=== PATIENT | male | born 2000 | race Two or more races ===

== ENCOUNTER 2024-02-23 02:48 | Inpatient (IN) | payer MEDICAID, OTHER ==
[2024-02-23] VITALS (8 sets, daily range): BP systolic 117–130; BP diastolic 62–74; PULSE 94–117; RESP 16–18; TEMP 97.2–99; O2SAT 95–100
[~2024-02-23] VITALS: Ht 165.1 cm; Wt 101.6 kg
[2024-02-23 04:30] LABS: BASOPHILS % (AUTO) 0.9 % (0.0-2.0); EOSINOPHILS % (AUTO) 0.1 % (1.0-6.0); HEMOGLOBIN 17.5 g/dL (13.5-17.5); MONOCYTES # (AUTO) 0.5 K/uL (0.1-1.0)
[2024-02-23 04:38] LABS: ANION GAP 13 mmol/L (8-16); CALCIUM, TOTAL 8.8 mg/dL (8.8-10.5); CARBON DIOXIDE 24 mmol/L (22-29); CHLORIDE 105 mmol/L (98-107); GLOMERULAR FILTR. RATE CALC > 60 mL/min (>60); GLUCOSE,RANDOM 156 mg/dL (70-110); POTASSIUM 3.7 mmol/L (3.5-5.1); SODIUM SERUM 142 mmol/L (136-145); UREA NITROGEN, BLOOD 9 mg/dL (7-18)
[2024-02-23 04:41] LABS: LYMPHOCYTES # (AUTO) 1.9 K/uL (1.0-4.8); LYMPHOCYTES % (AUTO) 25.3 % (22.0-44.0); MEAN CORPUSCULAR HEMOGLOBIN 31.4 pg (26.0-34.0); MEAN CORPUSCULAR HGB CONC 34.3 G/dL (31.0-37.0); MEAN CORPUSCULAR VOLUME 92 fL (80-100); MONOCYTES % (AUTO) 6.1 % (2.0-9.0); NEUTROPHILS % (AUTO) 67.6 % (40.0-70.0); PLATELET COUNT (AUTO) 329 K/uL (150-450); RED BLOOD CELL COUNT(AUTO) 5.58 MIL/uL (4.50-5.90); RED CELL DISTRIBUTION WIDTH 13.7 % (11.5-14.5); WHITE BLOOD COUNT (AUTO) 7.3 K/uL (4.5-11.0)
[2024-02-23 04:44] LABS: COVID AG,FIA SOURCE NASAL SWAB
[2024-02-23 04:56] LABS: ALCOHOL, BLOOD (SERUM) 326 mg/dL (0-10)
[2024-02-23 05:06] LABS: SARS-COV2 (COVID) ANTIGEN,FIA Negative (Negative)
[2024-02-23 06:13] LABS: AMPHET/METH SCREEN,URINE NEGATIVE (NEGATIVE); BARBITURATE SCREEN, URINE NEGATIVE (NEGATIVE); BENZODIAZEPINES SCREEN,URINE NEGATIVE (NEGATIVE); CANNABINOID SCREEN,URINE POSITIVE (NEGATIVE); COCAINE SCREEN,URINE NEGATIVE (NEGATIVE); METHADONE SCREEN, URINE NEGATIVE (NEGATIVE); OPIATE SCREEN,URINE NEGATIVE (NEGATIVE); PHENCYCLIDINE SCREEN,URINE NEGATIVE (NEGATIVE)
[2024-02-23 06:14] LABS: ALCOHOL, URINE DRUG SCREEN POSITIVE (NEGATIVE)
[2024-02-23] MEDS ORDERED: HALOPERIDOL 5 MG TABLET PO PRN (08:15)
[2024-02-23] MEDS ORDERED: ZOLPIDEM TARTRATE 10 MG TABLET PO PRN (08:15)
[2024-02-24] VITALS (10 sets, daily range): BP systolic 124–157; BP diastolic 64–98; PULSE 94–125; RESP 16–18; TEMP 97.3–99.3; O2SAT 96–98
[2024-02-24] MEDS ORDERED: LOPERAMIDE HCL 2 MG CAPSULE PO PRN (09:30)
[2024-02-24] MEDS ORDERED: ONDANSETRON 4 MG TABLET PO PRN (09:30)
[2024-02-24] MEDS ORDERED: MAGNESIUM HYDROXIDE SUSPENSION 30 ML UDCUP PO PRN (09:30)
[2024-02-24] MEDS ORDERED: CloNIDine HCL 0.1 MG TABLET PO PRN (09:30)
[2024-02-24] MEDS ORDERED: BENZOCAINE/MENTHOL LOZENGE PO PRN (09:30)
[2024-02-24] MEDS ORDERED: MAG HYDROX/ALUMINUM HYD/SIMETH ES 30 ML SUSPENSION UDCUP PO PRN (09:30)
[2024-02-24] MEDS ORDERED: ALBUTEROL SULFATE HFA 90 MCG/PUFF 8 GM INHALER IH PRN (09:30)
[2024-02-24] MEDS ORDERED: PETROLATUM,WHITE 28 GM JELLY TP PRN (09:30)
[2024-02-24] MEDS ORDERED: ACETAMINOPHEN 325 MG TABLET PO PRN (09:30)
[2024-02-24] MEDS ORDERED: OMEPRAZOLE 20 MG CAPSULE PO PRN (09:30)
[2024-02-24] MEDS ORDERED: BACITRACIN 28 GM OINTMENT TP PRN (09:30)
[2024-02-24] MEDS ORDERED: DOCUSATE SODIUM 100 MG CAPSULE PO PRN (09:30)
[2024-02-24] MEDS: IBUPROFEN 600 MG TABLET PO PRN (10:10)
[2024-02-24] MEDS: LORazepam 2 MG TABLET PO PRN (11:04)
[2024-02-25 08:09] VITALS: BP 130/97; PULSE 73; RESP 17; TEMP 98; O2SAT 99
[2024-02-25 11:59] VITALS: BP 121/74; PULSE 88; RESP 17; TEMP 98; O2SAT 100
[2024-02-25 20:00] VITALS: BP 148/73; PULSE 100; RESP 18; TEMP 97.3; O2SAT 99
[2024-02-25 20:18] VITALS: BP 153/86; PULSE 117; RESP 20; TEMP 96.3; O2SAT 100
[2024-02-26 08:25] VITALS: BP 145/90; PULSE 84; RESP 18; TEMP 97.9; O2SAT 96
[2024-02-26 10:00] VITALS: BP 126/76; PULSE 85; RESP 18; TEMP 97.6; O2SAT 98
[2024-02-26 21:03] VITALS: BP 140/78; PULSE 76; RESP 17; TEMP 97.5; O2SAT 99
[2024-02-26 23:00] VITALS: BP 140/78; PULSE 76; RESP 18; TEMP 97.5; O2SAT 99
[2024-02-27 08:17] VITALS: BP 123/72; PULSE 89; RESP 17; TEMP 97.3; O2SAT 97
[2024-02-27 09:00] VITALS: BP 123/72; PULSE 89; RESP 17; TEMP 97.3; O2SAT 97
[2024-02-27 20:00] VITALS: BP 133/64; PULSE 85; RESP 18; TEMP 98.2; O2SAT 96
[2024-02-28 08:00] VITALS: BP 132/74; PULSE 92; RESP 17; TEMP 97.7; O2SAT 96
[2024-02-28 08:27] VITALS: BP 132/74; PULSE 92; RESP 17; TEMP 97.7; O2SAT 96
[2024-02-28 20:41] VITALS: BP 128/73; PULSE 89; RESP 18; TEMP 97.9; O2SAT 98
[2024-02-29 08:20] VITALS: BP 127/60; PULSE 81; RESP 16; TEMP 97.9; O2SAT 99
== END 2024-02-29 17:52 | disposition home or self-care (01) | DRG 754 ==
LOC: EMS 02:48 → B2S 10:43
PROVIDERS: ADMIT Psychiatry & Neurology Psychiatry; ATTEND Psychiatry & Neurology Psychiatry
DX: F32.9 Major depressive disorder, single episode, unspecified (principal); R45.851 Suicidal ideations; E66.9 Obesity, unspecified; G47.00 Insomnia, unspecified; Z20.822 Contact with and (suspected) exposure to COVID-19; K59.00 Constipation, unspecified; Z72.0 Tobacco use; F12.90 Cannabis use, unspecified, uncomplicated; F41.9 Anxiety disorder, unspecified; F10.129 Alcohol abuse with intoxication, unspecified; Z68.37 Body mass index [BMI] 37.0-37.9, adult; F10.10 Alcohol abuse, uncomplicated
CPT/HCPCS: 80048; 80307; 85025; G0480

== ENCOUNTER 2024-06-26 03:08 | Inpatient (IN) | payer MEDICAID, OTHER ==
[~2024-06-26] VITALS: Ht 165.1 cm; Wt 97.6 kg
[2024-06-26 03:50] LABS: BASOPHILS % (AUTO) 0.9 % (0.0-2.0); EOSINOPHILS % (AUTO) 0.5 % (1.0-6.0); HEMATOCRIT 47.3 % (41-53); HEMOGLOBIN 16.5 g/dL (13.5-17.5); LYMPHOCYTES # (AUTO) 2.5 K/uL (1.0-4.8); MEAN CORPUSCULAR HEMOGLOBIN 31.2 pg (26.0-34.0); MEAN CORPUSCULAR HGB CONC 34.9 G/dL (31.0-37.0); MEAN CORPUSCULAR VOLUME 90 fL (80-100); MONOCYTES # (AUTO) 0.7 K/uL (0.1-1.0); MONOCYTES % (AUTO) 8.4 % (2.0-9.0); NEUTROPHILS # (AUTO) 4.9 K/uL (1.8-7.7); NEUTROPHILS % (AUTO) 59.2 % (40.0-70.0); PLATELET COUNT (AUTO) 276 K/uL (150-450); RED BLOOD CELL COUNT(AUTO) 5.29 MIL/uL (4.50-5.90); WHITE BLOOD COUNT (AUTO) 8.2 K/uL (4.5-11.0)
[2024-06-26 03:59] LABS: ANION GAP 9 mmol/L (8-16); CARBON DIOXIDE 28 mmol/L (22-29); CHLORIDE 108 mmol/L (98-107); CREATININE 0.84 mg/dL (0.60-1.30); GLOMERULAR FILTR. RATE CALC > 60 mL/min (>60); GLUCOSE,RANDOM 111 mg/dL (70-110); POTASSIUM 4.2 mmol/L (3.5-5.1); SODIUM SERUM 145 mmol/L (136-145); UREA NITROGEN, BLOOD 10 mg/dL (7-18)
[2024-06-26 04:08] LABS: ALCOHOL, BLOOD (SERUM) 261 mg/dL (0-10)
[2024-06-26 06:58] LABS: COVID AG,FIA SOURCE NASAL SWAB
[2024-06-26 07:42] LABS: SARS-COV2 (COVID) ANTIGEN,FIA Negative (Negative)
[2024-06-26] MEDS ORDERED: LORazepam 2 MG TABLET PO PRN (08:15)
[2024-06-26] MEDS ORDERED: HALOPERIDOL 5 MG TABLET PO PRN (08:15)
[2024-06-26 11:44] LABS: APPEARANCE,URINE CLEAR (CLEAR); BILIRUBIN,URINE NEGATIVE (NEGATIVE); COLOR,URINE LIGHT YELLOW (YELLOW); GLUCOSE, URINE (UA) NEGATIVE (NEGATIVE); KETONES,URINE TRACE mg/dL (NEGATIVE); LEUKOCYTE ESTERASE ,URINE NEGATIVE (NEGATIVE); NITRATE,URINE NEGATIVE (NEGATIVE); OCCULT BLOOD,URINE NEGATIVE (NEGATIVE); PROTEIN,URINE NEGATIVE (NEGATIVE); SPECIFIC GRAVITIY, URINE 1.021 (1.003-1.030); UROBILINOGEN,URINE <=1.0 mg/dL (<=1.0)
[2024-06-26 11:56] LABS: ALCOHOL, URINE DRUG SCREEN POSITIVE (NEGATIVE); AMPHET/METH SCREEN,URINE NEGATIVE (NEGATIVE); BARBITURATE SCREEN, URINE NEGATIVE (NEGATIVE); BENZODIAZEPINES SCREEN,URINE NEGATIVE (NEGATIVE); CANNABINOID SCREEN,URINE POSITIVE (NEGATIVE); COCAINE SCREEN,URINE NEGATIVE (NEGATIVE); METHADONE SCREEN, URINE NEGATIVE (NEGATIVE); OPIATE SCREEN,URINE NEGATIVE (NEGATIVE); PHENCYCLIDINE SCREEN,URINE NEGATIVE (NEGATIVE)
[2024-06-26 13:09] VITALS: BP 140/77; PULSE 104; RESP 18; TEMP 97.8; O2SAT 98
[2024-06-26 13:28] VITALS: BP 140/77; PULSE 104; RESP 18; TEMP 97.8; O2SAT 98
[2024-06-26 20:30] VITALS: BP 149/68; PULSE 105; RESP 19; TEMP 98; O2SAT 100
[2024-06-27 07:33] LABS: HEMOGLOBIN A1C 5.3 % (3.8-5.6)
[2024-06-27] MEDS ORDERED: ALBUTEROL SULFATE HFA 90 MCG/PUFF 8 GM INHALER IH PRN (09:30)
[2024-06-27] MEDS ORDERED: ONDANSETRON 4 MG TABLET PO PRN (09:30)
[2024-06-27] MEDS ORDERED: NICOTINE 14 MG/24 HOUR PATCH TD PRN (09:30)
[2024-06-27] MEDS ORDERED: ACETAMINOPHEN 325 MG TABLET PO PRN (09:30)
[2024-06-27] MEDS ORDERED: CloNIDine HCL 0.1 MG TABLET PO PRN (09:30)
[2024-06-27] MEDS ORDERED: GuaiFENesin/D-METHORPHAN [SUGAR-FREE] 200-20MG/10 ML SYRUP UDCUP PO PRN (09:30)
[2024-06-27] MEDS ORDERED: MAGNESIUM HYDROXIDE SUSPENSION 30 ML UDCUP PO PRN (09:30)
[2024-06-27] MEDS ORDERED: LOPERAMIDE HCL 2 MG CAPSULE PO PRN (09:30)
[2024-06-27] MEDS ORDERED: DOCUSATE SODIUM 100 MG CAPSULE PO PRN (09:30)
[2024-06-27] MEDS ORDERED: MAG HYDROX/ALUMINUM HYD/SIMETH ES 30 ML SUSPENSION UDCUP PO PRN (09:30)
[2024-06-27] MEDS ORDERED: IBUPROFEN 400 MG TABLET PO PRN (09:30)
[2024-06-27] MEDS ORDERED: PETROLATUM,WHITE 28 GM JELLY TP PRN (09:30)
[2024-06-27 10:59] VITALS: BP 147/98; PULSE 88; RESP 18; TEMP 98.1; O2SAT 99
[2024-06-27] MEDS: SERTRALINE HCL 50 MG TABLET PO SCH (13:49)
[2024-06-27] MEDS: ZOLPIDEM TARTRATE 10 MG TABLET PO PRN (20:54)
[2024-06-27 21:16] VITALS: BP 112/60; PULSE 75; RESP 18; TEMP 98.2; O2SAT 98
[2024-06-28] MEDS ORDERED: SERT-158 PO (08:06)
[2024-06-28 08:24] LABS: HEMOGLOBIN A1C 5.3 % (3.8-5.6)
[2024-06-28 08:35] LABS: THYROID STIMULATING HORMONE 1.93 uIU/mL (0.36-3.74)
[2024-06-28 10:00] VITALS: BP 144/86; PULSE 88; RESP 18; TEMP 97.6; O2SAT 98
== END 2024-06-28 17:00 | disposition home or self-care (01) | DRG 751 ==
LOC: EMS 03:11 → 3EI 11:51
PROVIDERS: ADMIT Psychiatry & Neurology Child & Adolescent Psychiatry; ATTEND Psychiatry & Neurology Child & Adolescent Psychiatry
PROC: GZ56ZZZ Individual Psychotherapy, Supportive (ICD-10-PCS; principal; 2024-06-27)
DX: F33.2 Major depressive disorder, recurrent severe without psychotic features (principal); R45.851 Suicidal ideations; F10.129 Alcohol abuse with intoxication, unspecified; Z20.822 Contact with and (suspected) exposure to COVID-19; J45.909 Unspecified asthma, uncomplicated; F41.9 Anxiety disorder, unspecified; G47.00 Insomnia, unspecified
CPT/HCPCS: 80048; 80061; 80307; 81003; 83036; 84443; 85025; 99285; G0480

== ENCOUNTER 2024-08-05 21:19 | Inpatient (IN) | payer MEDICAID, OTHER ==
[~2024-08-05] VITALS: Ht 165.1 cm; Wt 90.0 kg
[~2024-08-05 21:19] MED LIST: SERT-158 PO
[2024-08-05] MEDS: LORazepam 2 MG/ML VIAL IM ONE (22:03)
[2024-08-05] MEDS: DiphenhydrAMINE HCL 50 MG/ML VIAL IM ONE (22:03)
[2024-08-05] MEDS: HALOPERIDOL LACTATE 5 MG/ML VIAL IM ONE (22:04)
[2024-08-05 22:30] LABS: COVID AG,FIA SOURCE NASAL SWAB
[2024-08-05 22:32] LABS: BASOPHILS % (AUTO) 0.9 % (0.0-2.0); EOSINOPHILS % (AUTO) 0.3 % (1.0-6.0); HEMATOCRIT 50.8 % (41-53); HEMOGLOBIN 16.9 g/dL (13.5-17.5); LYMPHOCYTES # (AUTO) 1.8 K/uL (1.0-4.8); MEAN CORPUSCULAR HEMOGLOBIN 30.3 pg (26.0-34.0); MEAN CORPUSCULAR HGB CONC 33.3 G/dL (31.0-37.0); MEAN CORPUSCULAR VOLUME 91 fL (80-100); MONOCYTES # (AUTO) 0.3 K/uL (0.1-1.0); MONOCYTES % (AUTO) 4.8 % (2.0-9.0); NEUTROPHILS # (AUTO) 3.7 K/uL (1.8-7.7); PLATELET COUNT (AUTO) 240 K/uL (150-450); RED BLOOD CELL COUNT(AUTO) 5.58 MIL/uL (4.50-5.90); WHITE BLOOD COUNT (AUTO) 5.9 K/uL (4.5-11.0)
[2024-08-05 22:40] LABS: ANION GAP 8 mmol/L (8-16); CALCIUM, TOTAL 9.4 mg/dL (8.8-10.5); CARBON DIOXIDE 29 mmol/L (22-29); CHLORIDE 108 mmol/L (98-107); CREATININE 0.84 mg/dL (0.60-1.30); GLOMERULAR FILTR. RATE CALC > 60 mL/min (>60); GLUCOSE,RANDOM 101 mg/dL (70-110); SODIUM SERUM 145 mmol/L (136-145); UREA NITROGEN, BLOOD 9 mg/dL (7-18)
[2024-08-05 22:51] LABS: SARS-COV2 (COVID) ANTIGEN,FIA Negative (Negative)
[2024-08-05 23:02] LABS: ALCOHOL, BLOOD (SERUM) 319 mg/dL (0-10)
[2024-08-06 05:26] LABS: APPEARANCE,URINE CLEAR (CLEAR); BILIRUBIN,URINE NEGATIVE (NEGATIVE); COLOR,URINE LIGHT YELLOW (YELLOW); GLUCOSE, URINE (UA) NEGATIVE (NEGATIVE); KETONES,URINE NEGATIVE (NEGATIVE); LEUKOCYTE ESTERASE ,URINE NEGATIVE (NEGATIVE); NITRATE,URINE NEGATIVE (NEGATIVE); OCCULT BLOOD,URINE NEGATIVE (NEGATIVE); PROTEIN,URINE NEGATIVE (NEGATIVE); UROBILINOGEN,URINE <=1.0 mg/dL (<=1.0)
[2024-08-06 05:32] LABS: AMPHET/METH SCREEN,URINE NEGATIVE (NEGATIVE); BARBITURATE SCREEN, URINE NEGATIVE (NEGATIVE); BENZODIAZEPINES SCREEN,URINE NEGATIVE (NEGATIVE); CANNABINOID SCREEN,URINE NEGATIVE (NEGATIVE); COCAINE SCREEN,URINE NEGATIVE (NEGATIVE); METHADONE SCREEN, URINE NEGATIVE (NEGATIVE); OPIATE SCREEN,URINE NEGATIVE (NEGATIVE); PHENCYCLIDINE SCREEN,URINE NEGATIVE (NEGATIVE)
[2024-08-06 05:46] LABS: ALCOHOL, URINE DRUG SCREEN POSITIVE (NEGATIVE)
[2024-08-06] MEDS ORDERED: HALOPERIDOL 5 MG TABLET PO PRN (07:30)
[2024-08-06 12:14] VITALS: O2SAT 98
[2024-08-06 16:42] VITALS: BP 127/78; PULSE 106; RESP 16; TEMP 98.4; O2SAT 96
[2024-08-06] MEDS ORDERED: INFLUENZA VIRUS VACCINE TVS (6MO+) 2024-25/PF 45 MCG/0.5 ML SYRINGE IM. ONE (17:30)
[2024-08-06] MEDS ORDERED: GuaiFENesin/D-METHORPHAN [SUGAR-FREE] 200-20MG/10 ML SYRUP UDCUP PO PRN (18:45)
[2024-08-06] MEDS ORDERED: IBUPROFEN 400 MG TABLET PO PRN (18:45)
[2024-08-06] MEDS ORDERED: NICOTINE 14 MG/24 HOUR PATCH TD PRN (18:45)
[2024-08-06] MEDS ORDERED: LOPERAMIDE HCL 2 MG CAPSULE PO PRN (18:45)
[2024-08-06] MEDS ORDERED: MAGNESIUM HYDROXIDE SUSPENSION 30 ML UDCUP PO PRN (18:45)
[2024-08-06] MEDS ORDERED: ONDANSETRON 4 MG TABLET PO PRN (18:45)
[2024-08-06] MEDS ORDERED: DOCUSATE SODIUM 100 MG CAPSULE PO PRN (18:45)
[2024-08-06] MEDS ORDERED: PETROLATUM,WHITE 28 GM JELLY TP PRN (18:45)
[2024-08-06] MEDS ORDERED: ALBUTEROL SULFATE HFA 90 MCG/PUFF 8 GM INHALER IH PRN (18:45)
[2024-08-06] MEDS ORDERED: MAG HYDROX/ALUMINUM HYD/SIMETH ES 30 ML SUSPENSION UDCUP PO PRN (18:45)
[2024-08-06] MEDS ORDERED: CloNIDine HCL 0.1 MG TABLET PO PRN (18:45)
[2024-08-06 20:02] VITALS: BP 113/65; PULSE 18; RESP 18; TEMP 98; O2SAT 97
[2024-08-07 00:16] VITALS: RESP 18
[2024-08-07] MEDS: ACETAMINOPHEN 325 MG TABLET PO PRN (00:16)
[2024-08-07] MEDS: LORazepam 2 MG TABLET PO PRN (00:16)
[2024-08-07] MEDS: ZOLPIDEM TARTRATE 10 MG TABLET PO PRN (00:24)
[2024-08-07 08:55] LABS: BASOPHILS % (AUTO) 1.3 % (0.0-2.0); EOSINOPHILS % (AUTO) 1.9 % (1.0-6.0); HEMATOCRIT 46.3 % (41-53); HEMOGLOBIN 15.6 g/dL (13.5-17.5); LYMPHOCYTES # (AUTO) 2.2 K/uL (1.0-4.8); LYMPHOCYTES % (AUTO) 36.5 % (22.0-44.0); MEAN CORPUSCULAR HEMOGLOBIN 30.7 pg (26.0-34.0); MEAN CORPUSCULAR HGB CONC 33.7 G/dL (31.0-37.0); MEAN CORPUSCULAR VOLUME 91 fL (80-100); MONOCYTES # (AUTO) 0.3 K/uL (0.1-1.0); MONOCYTES % (AUTO) 5.4 % (2.0-9.0); NEUTROPHILS # (AUTO) 3.4 K/uL (1.8-7.7); NEUTROPHILS % (AUTO) 54.9 % (40.0-70.0); PLATELET COUNT (AUTO) 233 K/uL (150-450); RED BLOOD CELL COUNT(AUTO) 5.09 MIL/uL (4.50-5.90); RED CELL DISTRIBUTION WIDTH 13.6 % (11.5-14.5); WHITE BLOOD COUNT (AUTO) 6.1 K/uL (4.5-11.0)
[2024-08-07 09:14] LABS: HEMOGLOBIN A1C 4.9 % (3.8-5.6)
[2024-08-07 09:19] LABS: ALANINE AMINOTRANSFERASE 89 U/L (12-78); ALBUMIN 3.6 g/dL (3.4-5.0); ALKALINE PHOSPHATASE 77 U/L (46-116); ANION GAP 6 mmol/L (8-16); ASPARTATE AMINOTRANSFERASE 38 U/L (15-37); BILIRUBIN,TOTAL 0.8 mg/dL (0.1-1.0); CALCIUM, TOTAL 9.4 mg/dL (8.8-10.5); CARBON DIOXIDE 31 mmol/L (22-29); CHLORIDE 103 mmol/L (98-107); CHOLESTEROL 129 mg/dL (131-200); CREATININE 0.94 mg/dL (0.60-1.30); GLOMERULAR FILTR. RATE CALC > 60 mL/min (>60); GLUCOSE,RANDOM 129 mg/dL (70-110); HDL CHOLESTEROL 43 mg/dL (40-60); LDL CHOL (CALC.) 43 mg/dL (0-130); POTASSIUM 3.9 mmol/L (3.5-5.1); SODIUM SERUM 140 mmol/L (136-145); THYROID STIMULATING HORMONE 2.65 uIU/mL (0.36-3.74); TOTAL PROTEIN, SERUM 6.6 g/dL (6.4-8.2); TRIGLYCERIDES 216 mg/dL (15-150); UREA NITROGEN, BLOOD 15 mg/dL (7-18)
[2024-08-07 10:21] VITALS: BP 130/80; PULSE 97; RESP 18; TEMP 97.6
[2024-08-07] MEDS: ESCITALOPRAM OXALATE 10 MG TABLET PO SCH (13:45)
[2024-08-07 20:29] VITALS: BP 141/82; PULSE 96; RESP 18; TEMP 98.2; O2SAT 96
[2024-08-08 09:46] VITALS: BP 137/82; PULSE 90; RESP 18; TEMP 97.8; O2SAT 96
[2024-08-08] MEDS ORDERED: ESCI-8 PO (11:55)
[2024-08-09] MEDS ORDERED: ESCI-8 PO (05:51)
== END 2024-08-08 14:29 | disposition home or self-care (01) | DRG 751 ==
LOC: EMS 21:19 → B2S 08-06 12:54
PROVIDERS: ADMIT Psychiatry & Neurology Psychiatry; ATTEND Psychiatry & Neurology Psychiatry
PROC: GZ56ZZZ Individual Psychotherapy, Supportive (ICD-10-PCS; principal; 2024-08-07)
PROC: GZ58ZZZ Individual Psychotherapy, Cognitive-Behavioral (ICD-10-PCS; 2024-08-07)
DX: F33.2 Major depressive disorder, recurrent severe without psychotic features (principal); F10.20 Alcohol dependence, uncomplicated; F41.9 Anxiety disorder, unspecified; Z20.822 Contact with and (suspected) exposure to COVID-19; J45.909 Unspecified asthma, uncomplicated; R73.9 Hyperglycemia, unspecified; Y90.8 Blood alcohol level of 240 mg/100 ml or more; Z79.899 Other long term (current) drug therapy
CPT/HCPCS: 80048; 80053; 80061; 80307; 81003; 83036; 84443; 85025; G0480

== ENCOUNTER 2025-03-16 03:31 | Inpatient (IN) | payer MEDICAID, OTHER ==
[~2025-03-16] VITALS: Ht 180.3 cm; Wt 101.6 kg
[~2025-03-16 03:31] MED LIST changes: +ESCI-8 PO; -SERT-158 PO
[2025-03-16] MEDS: LORazepam 2 MG/ML VIAL IM ONE (04:40)
[2025-03-16 05:41] LABS: GLUCOMETER DEV NAME(LOC) ER.7; GLUCOSE,POINT OF CARE 118 MG/DL (70-110)
[2025-03-16 05:46] LABS: COVID AG,FIA SOURCE NASAL SWAB
[2025-03-16 05:59] LABS: SARS-COV2 (COVID) ANTIGEN,FIA Negative (Negative)
[2025-03-16 06:06] LABS: PLATELET COUNT (AUTO) 276 K/uL (150-450); RED BLOOD CELL COUNT(AUTO) 5.08 MIL/uL (4.50-5.90); RED CELL DISTRIBUTION WIDTH 13.3 % (11.5-14.5); WHITE BLOOD COUNT (AUTO) 9.6 K/uL (4.5-11.0)
[2025-03-16 06:19] LABS: CALCIUM, TOTAL 7.9 mg/dL (8.8-10.5); CREATININE 1.00 mg/dL (0.60-1.30); GLOMERULAR FILTR. RATE CALC > 60 mL/min (>60); GLUCOSE,RANDOM 113 mg/dL (70-110); SODIUM SERUM 146 mmol/L (136-145); UREA NITROGEN, BLOOD 13 mg/dL (7-18)
[2025-03-16 09:14] VITALS: O2SAT 97
[2025-03-16 11:50] VITALS: BP 136/73; PULSE 100; RESP 16; TEMP 98.4; O2SAT 97
[2025-03-16 20:38] VITALS: BP 134/81; PULSE 77; RESP 17; TEMP 97.8; O2SAT 98
[2025-03-17 08:16] LABS: PLATELET COUNT (AUTO) 224 K/uL (150-450); RED BLOOD CELL COUNT(AUTO) 4.80 MIL/uL (4.50-5.90); RED CELL DISTRIBUTION WIDTH 13.5 % (11.5-14.5); WHITE BLOOD COUNT (AUTO) 6.4 K/uL (4.5-11.0)
[2025-03-17 08:23] VITALS: BP_SYST 104; BP_SYST 119; BP_DIAS 70; BP_DIAS 90; PULSE 72; PULSE 94; RESP 17; RESP 20; TEMP 98; O2SAT 96; O2SAT 98
[2025-03-17 08:59] LABS: ASPARTATE AMINOTRANSFERASE 46 U/L (15-37); CALCIUM, TOTAL 8.5 mg/dL (8.8-10.5); CHOL/HDL RATIO 4.6 (4.2-7.3); CREATININE 0.65 mg/dL (0.60-1.30); GLOMERULAR FILTR. RATE CALC > 60 mL/min (>60); GLUCOSE,RANDOM 87 mg/dL (70-110); LDL CHOL (CALC.) 87 mg/dL (0-130); SODIUM SERUM 141 mmol/L (136-145); TOTAL PROTEIN, SERUM 6.8 g/dL (6.4-8.2); UREA NITROGEN, BLOOD 11 mg/dL (7-18)
[2025-03-17] MEDS: ZOLPIDEM TARTRATE 10 MG TABLET PO PRN (20:26)
[2025-03-17 20:33] VITALS: BP 119/82; PULSE 86; RESP 17; TEMP 98.2; O2SAT 98
[2025-03-18 08:14] VITALS: BP 119/74; PULSE 89; RESP 17; TEMP 98.9; O2SAT 99
[2025-03-18 20:10] VITALS: BP 142/88; PULSE 83; RESP 18; TEMP 98.1; O2SAT 98
[2025-03-18 22:06] LABS: HEPATITIS C AB (EIA) Non Reactive (Non Reactive)
[2025-03-19 08:07] VITALS: BP 126/90; RESP 16; TEMP 97.3; O2SAT 99
[2025-03-19] MEDS: ESCITALOPRAM OXALATE 10 MG TABLET PO SCH (09:00)
[2025-03-19 21:09] VITALS: BP 127/100; PULSE 101; RESP 18; TEMP 98.1; O2SAT 100
[2025-03-20 08:16] VITALS: BP 113/60; PULSE 84; RESP 17; TEMP 97.9; O2SAT 98
== END 2025-03-20 11:18 | disposition home or self-care (01) | DRG 753 ==
LOC: EMS 03:31 → B3A 10:08
PROVIDERS: ADMIT Psychiatry & Neurology Psychiatry; ATTEND Psychiatry & Neurology Psychiatry
DX: F31.9 Bipolar disorder, unspecified (principal); Z78.1 Physical restraint status; G47.00 Insomnia, unspecified; J45.909 Unspecified asthma, uncomplicated; K59.00 Constipation, unspecified; F41.9 Anxiety disorder, unspecified; F12.90 Cannabis use, unspecified, uncomplicated; F10.90 Alcohol use, unspecified, uncomplicated; Z20.822 Contact with and (suspected) exposure to COVID-19; Y90.1 Blood alcohol level of 20-39 mg/100 ml; Z72.0 Tobacco use; Z68.31 Body mass index [BMI] 31.0-31.9, adult; E66.9 Obesity, unspecified
CPT/HCPCS: 80048; 80053; 80061; 82962; 83036; 84436; 84443; 85025; 86803; 87340; 96372; 99291; G0480